=== PATIENT | female | born 1955 | race Caucasian/White ===

== ENCOUNTER → 2016-07-16 | Outpatient (CLI) | payer BC ==
[~2016-07-16] MED LIST: CRAN1CAP15 PO; DOCU100C PO; IBUP-1050 PO; LTRCR30 TOP
--- NOTE | 2016-07-16 16:15 | DIAGNOSTIC IMAGING REPORT ---
KUB CLINICAL HISTORY: Dysuria, pelvic pain. COMPARISON STUDY: No previous studies for comparison. FINDINGS: There is no pathologic bowel dilatation. There are no calcification suspicious for renal calculi. There is a 22 mm left pelvic basin calcification possibly representing a degenerating uterine fibroid. Additional pelvic basin calcifications, likely represent phleboliths. IMPRESSION: 1. No evidence of pathologic bowel dilatation 2. No renal calculi identified 3. Suspected calcified uterine fibroid Electronically signed by: Jeffery Dinh M.D. 07/16/2016 4:13 PM Dictated Date/Time: 07/16/2016 4:12 PM
== END | disposition home or self-care (01) ==
LOC: C.RAD 15:49
PROVIDERS: ATTEND Nurse Practitioner Family
DX: R30.0 Dysuria (principal); R10.2 Pelvic and perineal pain

== ENCOUNTER → 2016-07-16 | Outpatient (CLI) | payer BC | END | disposition home or self-care (01) | LOC: C.LAB 17:28 | PROVIDERS: ATTEND Nurse Practitioner Family | DX: R30.0 Dysuria (principal) ==

== ENCOUNTER → 2016-07-28 | Outpatient (CLI) | payer BC | END | disposition home or self-care (01) | LOC: C.PAPS 09:34 | PROVIDERS: ATTEND Physician Assistant | DX: Z01.419 Encounter for gynecological examination (general) (routine) without abnormal findings (principal) ==

== ENCOUNTER → 2017-01-15 | Outpatient (CLI) | payer BC ==
--- NOTE | 2017-01-15 08:32 | DIAGNOSTIC IMAGING REPORT ---
R FOOT MIN 3 VIEWS CLINICAL HISTORY: 61 years-old Female presenting with RIGHT FOOT PAIN. TECHNIQUE: Frontal, oblique, and lateral views of the right foot were obtained. COMPARISON: 06/15/2013. 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 Chronic deformity of the interphalangeal joint of the worst toe, likely degenerative or posttraumatic in etiology. Degenerative changes of the first metatarsophalangeal joint also noted, not significant changed since 2013. Accessory navicular and os peroneum noted. Small bone spur at the inferior calcaneus. Deformity of the neck of the fifth metatarsal may suggest prior fracture. No acute fracture or malalignment allowing for the suspected presence of osteopenia. IMPRESSION: 1. Degenerative changes of the first toe and postsurgical changes of the second toe. 2. No acute osseous injury allowing for osteopenia. 3. Plantar fascia enthesophyte. Electronically signed by: Mekhi Dewitt M.D. 01/15/2017 8:31 AM Dictated Date/Time: 01/15/2017 8:28 AM
== END | disposition home or self-care (01) ==
LOC: C.RDSM 12:25
PROVIDERS: ATTEND Physician Assistant
DX: M79.671 Pain in right foot (principal); M77.31 Calcaneal spur, right foot

== ENCOUNTER → 2017-09-21 | Outpatient (CLI) | payer BC ==
--- NOTE | 2017-09-21 12:14 | DIAGNOSTIC IMAGING REPORT ---
(HELADIO/BLAD)RETROPERITON COMP HISTORY: Infection. Pyelonephritis. N39.0 Urinary tract [id number] COMPARISON: None. FINDINGS: Right kidney: Maximum dimension 9.0 cm. No evidence for hydronephrosis. Normal corticomedullary differentiation and cortical thickness. Left kidney: Maximum dimension 10.0 cm. No evidence for hydronephrosis. Normal corticomedullary differentiation and cortical thickness. Bladder: No bladder wall thickening. The bilateral ureteral jets were identified. IMPRESSION: Normal renal ultrasound. The above report was generated using voice recognition software. It may contain grammatical, syntax or spelling errors. Electronically signed by: Anders Naqvi M.D. 09/21/2017 12:13 PM Dictated Date/Time: 09/21/2017 12:12 PM
== END | disposition home or self-care (01) ==
LOC: C.ULTR 11:33
PROVIDERS: ATTEND Urology
DX: N39.0 Urinary tract infection, site not specified (principal)

== ENCOUNTER → 2017-10-03 | Outpatient (CLI) | payer BC | END | disposition home or self-care (01) | LOC: C.LAB 12:23 | PROVIDERS: ATTEND Urology | DX: N39.0 Urinary tract infection, site not specified (principal) ==